=== PATIENT | male | born 1970 | race Caucasian/White ===

== ENCOUNTER 2024-07-12 22:38 | Emergency (ER) | payer OTHER, SELFPAY ==
[2024-07-12 22:49] VITALS: BP 163/95; PULSE 78; RESP 18; TEMP 36.9; O2SAT 96; BMI 28.5
[2024-07-12] MEDS: GLUCAGON 1 MG/ML VIAL IV (22:54)
[2024-07-12] MEDS: NITROGLYCERIN 0.4MG SL TABLET 0.4 MG SL (23:02)
--- NOTE | 2024-07-12 23:16 | ED_ITS ---
Discharge Plan Disposition Patient Disposition: Home, Self-Care Referrals Follow up/Referrals: Provider,Shaina, [Primary Care Provider] - See instructions Activity Restrictions/Add. Instructions Additional Instructions/Restrictions: Please follow-up with your primary care provider. Please return to the emergency department if you develop any new or worsening symptoms or become concerned for your health. Clinical Impressions Clinical Impression: Food impaction of esophagus Qualifiers: Encounter type: initial encounter Qualified Code(s): T18.128A - Food in esophagus causing other injury, initial encounter Instructions Patient Instructions: DI for Skin Abscess Print Language Print Language: Burkinan Discharge ED Provider: Yannick Diaz General Adult HPI <Mirza Melton MD - Last Filed: 07/12/24 23:21> General Chief complaint: Skin/Abscess/Foreign Body Stated complaint: Chicken stuck in throat Time Seen by Provider: 07/12/24 22:45 Mode of Arrival: Ambulatory Source of Information: Patient and Spouse Description of Symptoms (Recalled from ER Triage Doc. by RN): Pt presents for evaluation of a food bolus that occurred this evening while the patient was eating dinner. Pt states it is chicken and tried soda at home to dislodge the food but was unsuccessful. Pt states he has two other episodes of food boluses. History of Present Illness HPI narrative: Please note that above description of symptoms, in this electronic medical rec ord under categorization of recalled from ER triage doctor by RN are reflective of an initial nursing assessment, however, is not reflective of my full history and physical exam that was personally taken and clarified. Consequentially, this preceding description of symptoms, which may include the patient's categorized chief complaint in the EMR, do not reflect my personal clinical impression, and the ultimate description of history of present illness and patient stated complaints should be deferred to this section of the note. Unless stated otherwise or congruent with this section of the note, additional signs, symptoms, or incongruence should be interpreted as inaccurate with my clinical impression. Related Data Allergies Allergy/AdvReac Type Severity Reaction Status Date / Time No Known Allergies Allergy Verified 07/12/24 22:51 PFSH <Mirza Melton MD - Last Filed: 07/12/24 23:21> [facility], LAT[facility] Disclaimer: The information contained in this section may have been updated after the patient was seen, as this information can be updated by other users. Social History (Updated 07/12/24 @ 23:21 by Mizra Melton MD) Smoking Status: Never smoker alcohol intake: never current occupational status: employed Travel in the last 8 weeks?: None Have you lived/traveled outside [place] in past 30 days?: No Contact w/someone who lives/traveled outside [place] past 30 days?: No Exposure to someone with infectious disease in past 14 days?: No Do you have a fever (greater than 100.4 F or 38 C)?: No Have you tested positive for COVID-19?: No Exposed to someone with COVID-19 in past 14 days?: No Do you have a sore throat?: No Do you have a cough?: No Do you have any weakness?: No Do you have any diarrhea?: No Are you experiencing any unusual bleeding?: No Do you have any muscle aches/pain?: No Do you have any abdominal pain?: No Are you experiencing loss of taste or smell?: No <Mirza Melton MD - Last Filed: 07/12/24 23:21> ROS Obtained: Yes All systems reviewed & no additional complaints except as documented Physical Exam <Mirza Melton MD - Last Filed: 07/12/24 23:21> General General appearance: alert Head Head exam: atraumatic and normocephalic Eye Eye exam: Present normal appearance, PERRL, EOMI and other (Periorbital petechiae) Neck Neck exam: Present normal inspection, full ROM and trachea midline Respiratory Respiratory exam: Absent respiratory distress, wheezes, stridor, accessory muscle use or prolonged expiratory phase Cardiovascular Cardiovascular exam: Present other (Pulses equal symmetric in upper and lower extremities) Abdominal Exam Abdominal exam: Present soft; Absent distention, tenderness or pulsatile mass Extremities Exam Extremities exam: Absent edema Neurological Exam Neurological exam: Present alert, oriented X3 and CN II-XII intact; Absent motor sensory deficit Skin Skin exam: Present warm and dry; Absent diaphoresis or erythema Medical Decision Making <Mirza Melton MD - Last Filed: 07/12/24 23:21> Medical Records Medical records reviewed: Yes I reviewed the patient's medical records. Screening: Per USPSTF and CDC recommendations, given the prevalence of disease in our region, it is our hospital?s policy to screen for HIV and viral Hepatitis for all patients aged 18 and over and those with ongoing risk factors. Owen Inquiry Pt receiving controlled substance: No Owen was queried for this patient: No Vital Signs: 07/12/24 22:49 Temperature 98.4 F Temperature Source Temporal Artery Scan Pulse Rate [Right] 78 Respiratory Rate 18 Blood Pressure [Right Arm] 163/95 H Blood Pressure Mean [Right Arm] 117 Blood Pressure Source [Right Arm] Automatic Cuff Blood Pressure Position [Right Arm] Sitting 02 Sat by Pulse Oximetry 96 Oxygen Delivery Method Room Air Orders (Tests/Meds): ED MEDICATIONS Discontinued Medications Generic Name Dose Route Start Last Admin Trade Name Chin PRN Reason Stop Dose Admin Glucagon 1 mg 07/12/24 22:46 07/12/24 22:54 Glucagon 1 Mg/Ml Vial IV 07/12/24 22:47 1 mg ONCE ONE Administration Nitroglycerin 0.4 mg 07/12/24 22:59 07/12/24 23:02 Nitroglycerin 0.4mg Sl Tablet SL 07/12/24 23:00 0.4 mg ONCE ONE Administration Medical Decision Narrative: 53-year-old male with history of food impactions in the past presenting with food impaction. About 2 hours prior to this visit he was swallowing a chunk of chicken and got stuck. Unable to tolerate any p.o. intake including saliva. Patient has petechiae around his eyes from multiple episodes of vomiting. No chest pain, shortness of breath, etc. Came in for further evaluation. On evaluation, clinically well, but hypertensive and appears to be mildly uncomfortable. Cardiopulmonary exam as well as abdominal exams are normal. Differential includes food impaction, esophageal tear, among others. Patient given Zofran, nitroglycerin, glucagon to try to pass without procedure. Prior to reevaluation, care handed off to oncoming physician Office Inspector disclaimer Much of this encounter note is an electronic public finance specialist spoken language to printed text. Electronic public finance specialist of the spoken language may permit errors. Although I have reviewed the note, some errors may still exist. <Yannick Diaz MD - Last Filed: 07/12/24 23:45> Vital Signs: 07/12/24 22:49 Temperature 98.4 F Temperature Source Temporal Artery Scan Pulse Rate [Right] 78 Respiratory Rate 18 Blood Pressure [Right Arm] 163/95 H Blood Pressure Mean [Right Arm] 117 Blood Pressure Source [Right Arm] Automatic Cuff Blood Pressure Position [Right Arm] Sitting 02 Sat by Pulse Oximetry 96 Oxygen Delivery Method Room Air Orders (Tests/Meds): ED MEDICATIONS Discontinued Medications Generic Name Dose Route Start Last Admin Trade Name Chin PRN Reason Stop Dose Admin Glucagon 1 mg 07/12/24 22:46 07/12/24 22:54 Glucagon 1 Mg/Ml Vial IV 07/12/24 22:47 1 mg ONCE ONE Administration Nitroglycerin 0.4 mg 07/12/24 22:59 07/12/24 23:02 Nitroglycerin 0.4mg Sl Tablet SL 07/12/24 23:00 0.4 mg ONCE ONE Administration Medical Decision Narrative: 53-year-old male with history of food impactions in the past presenting with food impaction. About 2 hours prior to this visit he was swallowing a chunk of chicken and got stuck. Unable to tolerate any p.o. intake including saliva. Patient has petechiae around his eyes from multiple episodes of vomiting. No chest pain, shortness of breath, etc. Came in for further evaluation. On evaluation, clinically well, but hypertensive and appears to be mildly uncomfortable. Cardiopulmonary exam as well as abdominal exams are normal. Differential includes food impaction, esophageal tear, among others. Patient given Zofran, nitroglycerin, glucagon to try to pass without procedure. Prior to reevaluation, care handed off to oncoming physician Office Inspector disclaimer Much of this encounter note is an electronic public finance specialist spoken language to printed text. Electronic public finance specialist of the spoken language may permit errors. Although I have reviewed the note, some errors may still exist. Emily WIN: I assumed care of the patient at the time of handoff from the prior provider. On reevaluation, bolus remains present. After some further attempts at swallowing, patient was able to pass food bolus and had resolution in symptoms. Patient discharged in stable condition with return precautions. Critical Care <Mirza Melton MD - Last Filed: 07/12/24 23:21> Critical Care Time Critical Care Time: No
--- NOTE | 2024-07-12 23:26 | PC.NURSE ---
pepsi given for PO challenge, almost immediate emesis. Provider aware.
[2024-07-12 23:44] VITALS: BP 142/76; PULSE 94; RESP 14; TEMP 36.6; O2SAT 100
== END 2024-07-12 23:48 | disposition home or self-care (01) ==
PROVIDERS: Emergency Provider Emergency Medicine
DX: T18.128A Food in esophagus causing other injury, initial encounter (principal); R11.10 Vomiting, unspecified
CPT/HCPCS: 96374; 99284; J1611